=== PATIENT | female | born 2000 | race Caucasian/White ===

== ENCOUNTER 2024-01-28 20:17 | Emergency (ER) | payer BC, SELFPAY ==
[2024-01-28 20:18] VITALS: BP 121/77; PULSE 123; RESP 18; TEMP 37.9; O2SAT 98; BMI 38.2
--- NOTE | 2024-01-28 20:40 | RAD_ITS ---
EXAM: XR CHEST, 2 VIEWS CLINICAL INDICATION: cough TECHNIQUE: Frontal and lateral views of the chest. COMPARISON: No relevant prior studies available. FINDINGS: LUNGS AND PLEURAL SPACES: Right upper lobe/perihilar pulmonary opacities suggestive of pneumonia. Cannot exclude hilar adenopathy or mass. Minimal left lower lobe airspace disease likely pneumonia. No pneumothorax. No effusion. HEART: No significant abnormality. Cardiac silhouette not enlarged. MEDIASTINUM: Central airways and mediastinal contour are unremarkable. BONES/JOINTS: No significant abnormality. No acute fracture. SOFT TISSUES: No significant abnormality. RAD/Chest PA and Lateral IMPRESSION: 1. Right upper lobe/perihilar pulmonary opacities suggestive of pneumonia. Cannot exclude hilar adenopathy or mass. 2. Minimal left lower lobe airspace disease likely pneumonia. Electronically Signed: Juanito Granger DO at 21:03 EST ,
--- NOTE | 2024-01-28 20:47 | EX.ED.DYSGE1 ---
HPI <IVAN Grove - Last Filed: 01/28/24 21:53> History of Present Illness Chief Complaint: General Illness Narrative Narrative: Patient presenting today due to a cough, body aches, congestion, fevers, and chills that she has had since Wednesday. She reports that her son was recently sick with similar symptoms. She has a PMH of von Willebrand's disease. She denies abdominal pain, chest pain, shortness of breath, nausea, and vomiting. PFSH <IVAN Grove - Last Filed: 01/28/24 21:53> PFSH Home Medications ?Medication ?Instructions ?Recorded ?Last Taken ?Type doxycycline hyclate 100 mg capsule 100 mg PO BID 7 days #13 caps 01/28/24 Unknown Rx Allergy/AdvReac Type Severity Reaction Status Date / Time Latex, Natural Rubber Allergy Severe Anaphylaxis Verified 01/28/24 20:20 tree nut Allergy Severe Anaphylaxis Verified 01/28/24 20:20 chocolate AdvReac Intermediate Other Verified 01/28/24 20:20 Social History Smoking Status: Never smoker ROS <IVAN Grove - Last Filed: 01/28/24 21:53> ROS ED Constitutional Constitutional ED: Denies chills or fever(s) Cardiovascular Cardiovascular: Denies chest pain Respiratory/Chest Respiratory/Chest: Reports cough; Denies dyspnea Gastrointestinal Gastrointestinal: Denies abdominal pain, nausea or vomiting Musculoskeletal Musculoskeletal: Reports myalgias Integumentary Denies rash Neurologic Neurologic: Denies weakness EXAM <IVAN Grove Last Filed: 01/28/24 21:53> Physical Exam Const Vital Signs: 01/28/24 20:18 01/28/24 21:36 Temperature 100.3 F H 98 F Temperature Source Oral Pulse Rate 123 H 77 Respiratory Rate 18 16 Blood Pressure 121/77 H 131/82 H Blood Pressure Mean 91 98 Pulse Ox 98 99 Oxygen Delivery Method Room Air Positive well nourished, well developed and no apparent distress General Appearance ED: well developed HEENT Reports normocephalic, head/scalp atraumatic and TM's clear Tympanic Membrane ED: Yes TM's clear bilateral Mouth ED: Yes moist mucous membranes normal Throat: posterior oropharynx normal, tonsils normal and uvula midline Eyes PERRL and EOMs intact bilaterally Neck full ROM and supple Chest Wall inspection of chest normal Resp normal respiratory effort and clear to auscultation bilaterally Cardio regular rate and regular rhythm Back/Spine normal ROM and normal to inspection Extremity normal to inspection and full ROM Neuro oriented x3, CN's II-XII intact bilaterally, moves all extremities, no focal motor deficits and no sensory deficits noted Sensorium / Orientation: awake and alert Psych mental status grossly normal and thought process normal Skin no rashes or lesions noted and no wounds <Dr. Nav Gomez MD - Last Filed: 01/29/24 00:36> Physical Exam Const Vital Signs: 01/28/24 20:18 01/28/24 21:36 Temperature 100.3 F H 98 F Temperature Source Oral Pulse Rate 123 H 77 Respiratory Rate 18 16 Blood Pressure 121/77 H 131/82 H Blood Pressure Mean 91 98 Pulse Ox 98 99 Oxygen Delivery Method Room Air MDM <IVAN Grove - Last Filed: 01/28/24 21:53> [facility] Narrative Medical decision making narrative: Patient presenting today for flulike symptoms that started on Wednesday. She is nontoxic-appearing, she is tachycardic here at 123 bpm, her temperatures 100.3 ?F. She was given Tylenol and her vitals did improve. Chest x-ray obtained to rule out pneumonia and shows a right upper lobe pneumonia as interpreted by the attending ED physician. She is not , she is currently on her menstrual period. She will be treated with doxycycline with first dose here. I encouraged that she follow-up with her PCP, given she is not hypoxic, she will be discharged home in stable condition. Return instructions were discussed. Radiography Diagnostic Testing: Clinical Impression(s) from Imaging Studies Chest X-Ray 01/28/24 20:40 IMPRESSION: 1. Right upper lobe/perihilar pulmonary opacities suggestive of pneumonia. Cannot exclude hilar adenopathy or mass. 2. Minimal left lower lobe airspace disease likely pneumonia. Electronically Signed: Juanito Granger DO at 21:03 EST , <Dr. Nav Gomez MD - Last Filed: 01/29/24 00:36> [facility] Narrative Medical decision making narrative: Patient presenting today for flulike symptoms that started on Wednesday. She is nontoxic-appearing, she is tachycardic here at 123 bpm, her temperatures 100.3 ?F. She was given Tylenol and her vitals did improve. Chest x-ray obtained to rule out pneumonia and shows a right upper lobe pneumonia as interpreted by the attending ED physician. She is not , she is currently on her menstrual period. She will be treated with doxycycline with first dose here. I encouraged that she follow-up with her PCP, given she is not hypoxic, she will be discharged home in stable condition. Return instructions were discussed. I have personally performed a face to face assessment of the patient and have reviewed the CASSIA Note. I performed a substantive portion of the visit including all aspects of the following. My salvador findings include: History is Vicryl fever, chills, cough. Patient denies rhinorrhea, congestion, positive sore throat. Patient does endorse dyspnea with exertion. She denies leg pain, swelling discoloration. She denies history of VTE. He has no risk factors for VTE. Exam is remarkable for patient appearing ill. She is tachycardic. Blood pressure is normal. Temperature is elevated to 100.3. HEENT exam is normal. Lungs reveal no wheeze rales rhonchi. Heart is rapid and regular. There is no asymmetry, swelling, discoloration, leg vein distention, palpable cords or tenderness along the distribution of the deep venous system. Medical Decision Making with persistent fever cough that is productive will obtain chest x-ray to assess for pneumonia. Patient has infiltrate as documented under the chest x-ray portion. The interpretation was performed by me. Other additions or changes: Patient has no signs symptoms of has not been sexually active since delivery. Will treat with doxycycline to cover typical and atypical organisms. Radiography Chest X-Ray - ED: 2 View, Read by ED Physician, Heart, Mediastinum, Bony Structures and Right Infiltrate (Inferior segment right upper lobe) Diagnostic Testing: Clinical Impression(s) from Imaging Studies Chest X-Ray 01/28/24 20:40 IMPRESSION: 1. Right upper lobe/perihilar pulmonary opacities suggestive of pneumonia. Cannot exclude hilar adenopathy or mass. 2. Minimal left lower lobe airspace disease likely pneumonia. Electronically Signed: Juanito Granger, at 21:03 EST , Discharge Plan Triage Chief Complaint: General Illness ED Midlevel Provider: Carolann Hallman ED Provider: Nav Gomez Dx/Rx/DC Orders Clinical Impression: Pneumonia, Sinus tachycardia, Fever, Elevated blood-pressure reading without diagnosis of hypertension Instructions: ED Pneumonia (Adult) Prescriptions: New doxycycline hyclate 100 mg capsule 100 mg PO BID 7 Days Qty: 13 0RF Primary Care Provider: Care Physician,No Primary Referrals: Care Physician,No Primary [Primary Care Provider] - Activity Restrictions/Additional Instructions: Follow-up with your PCP and return for any worsening of your symptoms. Print Language: German Disposition Disposition: Home, Self Care Discharge Date/Time: 01/28/24 21:37
[2024-01-28] MEDS: Acetaminophen 325 MG Tablet 650 MG PO (21:33)
[2024-01-28] MEDS: Doxycycline 100 MG CAPSULE PO (21:33)
[2024-01-28 21:36] VITALS: BP 131/82; PULSE 77; RESP 16; TEMP 36.6; O2SAT 99
== END 2024-01-28 21:37 | disposition home or self-care (01) ==
PROVIDERS: Emergency Provider Emergency Medicine; Visit Provider Emergency Medicine
DX: J18.9 Pneumonia, unspecified organism (principal); R03.0 Elevated blood-pressure reading, without diagnosis of hypertension; R00.0 Tachycardia, unspecified
CPT/HCPCS: 71046; 99282